=== PATIENT | male | born 1995 | race Caucasian/White ===

== ENCOUNTER 2018-04-15 18:00 | Emergency (ER) | payer MEDICAID ==
[~2018-04-15] VITALS: Ht 170.2 cm; Wt 60.3 kg
[2018-04-15 18:47] VITALS: Ht 170.2 cm; Wt 60.3 kg
[2018-04-15 19:40] VITALS: BP 133/74
== END 2018-04-15 19:40 | disposition home or self-care (01) ==
LOC: ED 18:00
DX: J03.90 Acute tonsillitis, unspecified (principal)
CPT/HCPCS: J7512